=== PATIENT | male | born 1955 | race African-American/Black ===

== ENCOUNTER 2019-09-04 15:59 | Inpatient (IN) | payer MEDICARE, OTHER ==
[~2019-09-04] VITALS: Ht 177.8 cm; Wt 91.6 kg
--- NOTE | 2019-09-04 16:05 | NUR ---
TACTICAL DEBRIEFER OFFICER NOTE: PATIENT IS A 63 YEAR OLD MALE BROUGHT IN TO THE HOSPITAL BY AMBULANCE FROM [facility]. PT IS ADMITTED ON A 5150 HOLD DTS. PT HAS A HISTORY OF SCHIZOPHRENIA WITH ONE PREVIOUS IN PT PSY HOSP. + SI WITH PLAN TO OD ON AMBIEN. PT DENIES PREVIOUS SUICIDE ATTEMPTS.TRIGGERED BY LEGAL PROCEEDINGS RELATED TO PT'S SECTION EIGHT HOUSING. + AUDITORY HALLUCINATIONS, COMMAND TYPE. PT STATES VOICES STATE "TO JUST END IT". PER 5150 HOLD, PT WAS ADMITTED FOR CHEST PAIN AND WHEN MEDICALLY CLEARED PT REPORTED + SI WITH PLAN TO OD. UPON FACE TO FACE ASSESSMENT, PT'S ASSESSMENT VALIDATES THE INFORMATION CONTAINED IN THE 5150 HOLD.PT CURRENTLY HAS VAGUE THOUGHTS OF SUICIDE AND CAN CONTRACT FOR SAFETY. DENIES CURRENT SI WITH A PLAN. PT DENIES HI/VH/TH. PT PRESENTS DEPRESSED, FLAT, RESTRICTED, LABILE AND PARANOID. POOR EYE CONTACT. GOOD LONG AND SHORT TERM MEMORY. PT REPORTS RECENT BOUTS OF INSOMNIA. PT MEDICAL HISTORY SIGNIFICANT FOR SYNCOPE AND CHRONIC BACK AND SHOULDER PAIN. PT ALSO REPORTS CHRONIC ABDOMINAL PAIN FROM A FAILED HERNIA REPAIR. PT IS AMBULATORY WITH A CANE. SPEECH CLEAR AND PRESSURED. PT IS WELL GROOMED. PT IS A FALL RISK D/T A FALL WITHIN THE LAST MONTH DUE TO A SYNCOPAL EPISODE. PT PLACED CLOSE TO THE NURSES STATION WITH q15 MIN CHECKS D/T SUICIDALITY. CALL LIGHT WITHIN REACH AND BED PLACED IN LOWEST LOCKED POSITION WITH SIDE RAILS UP X2. VSS. PT IS CURRENTLY NOT ON PSYCHOTROPIC MEDICATIONS. PT ORIENTED TO THE UNIT AND VALUABLES PLACE IN SAFE. PATIENT GIVEN PATIENT'S RIGHTS HANDBOOK AND GUIDE TO PRESCRIPTIONS.
[2019-09-04] MEDS ORDERED: MAG HYDROX/AL HYDROX/SIMETH 30 ML UDC PO PRN (16:30)
[2019-09-04] MEDS ORDERED: LORAZEPAM 0.5 MG TABLET PO PRN (16:30)
[2019-09-04] MEDS ORDERED: ACETAMINOPHEN 325 MG TABLET PO PRN (16:30)
[2019-09-04] MEDS ORDERED: BLOOD SUGAR DIAGNOSTIC 1 EACH STRIP IN ONE (16:30)
[2019-09-04] MEDS ORDERED: MAGNESIUM HYDROXIDE 30 ML UDC PO PRN (16:30)
[2019-09-04] MEDS ORDERED: TEMAZEPAM 7.5 MG CAPSULE PO PRN (16:30)
[2019-09-04] MEDS ORDERED: ESCI10TA PO (17:06)
[2019-09-04] MEDS ORDERED: IBUP-1955 PO (17:06)
[2019-09-04] MEDS ORDERED: MECL-159 PO (17:06)
[2019-09-04] MEDS ORDERED: HYDR-3972 PO (17:08)
[2019-09-04] MEDS ORDERED: TEMAZEPAM 15 MG CAPSULE PO PRN (18:00)
[2019-09-04 18:08] VITALS: BP 142/97
--- NOTE | 2019-09-04 19:30 | NUR ---
GPS RN OPENING NOTES : PATIENT RESTING IN ROOM . NO S/S OF ANY DISTRESS NOTED. BREATHING EVEN AND UNLABORED. NO S/S OF SOB. PT IS A & O X3, ISOLATIVE, RESERVED, DISHEVELED, GUARDED, EASILY AGITATED, DISORGANIZED, DENIES SI/HI AT THIS TIME. SAFETY MEASURES IN PLACE. BED ALARM ON. BED IN LOW LOCKED POSITION. PT. IS IN LINE OF SIGHT AT ALL TIMES FOR SAFETY. SUICIDAL PRECAUTIONS OBSERVED. WILL CONTINUE TO MONITOR Q15 MINS FOR SAFETY AND BEHAVIOR. CONTINUE TO MONITOR.
[2019-09-04 20:20] VITALS: BP 126/94
[2019-09-05 07:37] LABS: ALBUMIN 3.1 g/dL (3.4-5.0); BILIRUBIN,TOTAL 0.3 mg/dL (0.2-1.0); CALCIUM, SERUM 8.6 mg/dL (8.5-10.1); POTASSIUM 4.1 mmol/L (3.5-5.1); TOTAL PROTEIN, SERUM 7.2 g/dL (6.4-8.2)
[2019-09-05 07:49] LABS: CHOLESTEROL 167 mg/dL (<200); HDL CHOLESTEROL 35 mg/dL (40-60); LDL 108 mg/dL (0-99); TRIGLYCERIDES 127 mg/dL (30-150)
[2019-09-05 08:00] VITALS: BP 140/85
--- NOTE | 2019-09-05 12:45 | NUR ---
INITIAL DISCHARGE PLAN: Pt wishes to return home [address] [place] [address] . SW will help form a safe and proper discharge in collaboration with .
--- NOTE | 2019-09-05 15:34 | NUR ---
GROUP NOTE: SW encouraged pt to participate in group therapy on this present day discussing, "reality-testing." Pt refused to attend saying, "I'm leaving tomorrow, I have to go take care fo business." SW attempted to provide intervention and provide insight into his mental illness and pt refused to acknowledge information given to him and became agitated.
[2019-09-05 16:00] VITALS: BP 153/95
[2019-09-05] MEDS ORDERED: risperiDONE 1 MG TABLET PO ONE (17:00)
[2019-09-05] MEDS ORDERED: SERTRALINE HCL 50 MG TABLET PO ONE (17:00)
[2019-09-05 20:26] VITALS: BP 136/89
--- NOTE | 2019-09-06 06:56 | NUR ---
GPS RN NOTE: PATIENT COMPLAIN ABOUT HIS FOOD BEING MECHANICAL SOFT, PATIENT STATED "THEY TREATED ME LIKE A BABY, I WANT REGULAR, I HAVE NO PROBLEM SWALLOWING, I HAVE NO PROBLEM CHEWING". PATIENT ALSO REQUESTED NOT TO HAVE PORK AND COFFEE ON HIS MEAL. EXPLAINED TO THE PATIENT THE PROCEDURE, PATIENT VERBALIZED UNDERSTANDING AND PATIENT CALM DOWN. WILL CONTINUE TO MONITOR Q15 MISN FOR SAFETY
[2019-09-06 08:00] VITALS: BP 159/87
[2019-09-06] MEDS: SERTRALINE HCL 50 MG TABLET PO SCH (09:00)
[2019-09-06] MEDS: risperiDONE 1 MG TABLET PO SCH ×2 (09:00→17:00)
[2019-09-06 10:52] LABS: BASOPHILS % (AUTO) 0.4 % (0.0-2.0); EOSINOPHILS % (AUTO) 1.5 % (0.0-6.0); HEMATOCRIT 48 % (39-51); HEMOGLOBIN 15.8 g/dL (13.5-17.5); LYMPHOCYTES # (AUTO) 1.5 /CMM (0.8-4.8); LYMPHOCYTES % (AUTO) 33.7 % (20.0-44.0); MEAN CORPUSCULAR HGB CONC 33 g/dl (31.0-36.0); MEAN CORPUSCULAR VOLUME 89 fL (80-96); MONOCYTES # (AUTO) 0.5 /CMM (0.1-1.30); MONOCYTES % (AUTO) 10.8 % (2.0-12.0); NEUTROPHILS # (AUTO) 2.4 /CMM (1.8-8.9); NEUTROPHILS % (AUTO) 53.6 % (43.0-81.0); PLATELET COUNT (AUTO) 308 /CMM (150-450); RED BLOOD CELL COUNT(AUTO) 5.45 MIL/uL (4.5-6.0); WHITE BLOOD COUNT (AUTO) 4.5 K/uL (4.3-11.0)
--- NOTE | 2019-09-06 12:06 | NUR ---
GPS RN NOTE: RECEIVED RESTING IN THE ROOM A/OX3 PT DEMANDING, PARANOID,EASILY AGITATED, ARGUMENTATIVE, REFUSED AM MEDICATIONS STATED"IM FEELING FINE I DONT NEED ANY MEDICATIONS" EXPLAIN RISK AND BENEFITS PT CONTINUE REFUSING.PT DENIES SI/HI AT THIS TIME,DENIES FEELING DEPRESSED.PT COMPLAINING OF FOOD IT WAS ORDERED, OFFERED PT TO CALL THE KITCHEN TO ORDER ANY FOOD HE LIKES WITCH PT REFUSED ALL NEEDS MET AND UNANTICIPATED.WILL CONT TO MONITOR PT PER GPS PROTOCOL
--- NOTE | 2019-09-06 13:50 | NUR ---
INDIVIDUAL MEETING: SW met with pt at beside and attempted to address pts issues with his hospitalization due to pt constantly complaining about various things. Pt was agitated and hyperverbal and would not allow SW to speak. SW attempted to have a reality-based conversation with pt and explain reason for 5150 hold and pt denied ever stating he was having suicidal ideation with a plan to overdose, SW also attempted to encourage pt to be medication compliant and pt stated he did not need medication and will not take it. SW had a hard time redirecting pt as he was in a manic state.
--- NOTE | 2019-09-06 14:08 | NUR ---
GPS RN NOTE: PT REFUSED TO GIVE URINE SPECIMEN EXPLAIN RISK AND BENEFITS PT REFUSED STATED"IM NOT GIVING YOU NOTHING "
--- NOTE | 2019-09-06 14:16 | NUR ---
COLLATERAL CONTACT: RYAN contacted pts psychiatrist Dr. Marie Address: [address], [place] [address] to discuss pts treatment. SW informed him that pt has been refusing medications and has been agitated and constantly complaining about various things. SW explained that all his complaints have been addressed, however, pt has not been satisfied with the result. SW stated that pts has lack of insight and denies reason for 5150 hold. SW also stated that pt is focused on being discharged and states that he will call social security and 911 so he can get out. RYAN informed the MD that she attempted to have a reality-based conversation with pt explaining his treatment and hold process and pt would not allow SW to speak. Psychiatrist states that he had a one hour long conversation with pt last night and he believes that pt is not a danger to himself and should be discharged after pts 72 hour hold expires. Psychiatrist confirmed that pt is having issues with his landlord and is at risk of losing his section 8 voucher and wishes for SW to write him a letter stating he was been hospitalized on a 72 hour hold. RYAN stated that due to HIPPA SW is unable to provide details of pts hospitalization but is able to write a generic letter that states the date of admission and date of discharge. Psychiatric agreed and requested SW call him tomorrow with an update. SW stated that she will be contacting tomorrow with an update.
[2019-09-06 16:00] VITALS: BP 151/98
[2019-09-06 20:00] VITALS: BP 121/80
[2019-09-07 08:00] VITALS: BP 144/88
[2019-09-07] MEDS: risperiDONE 1 MG TABLET PO SCH (08:23)
--- NOTE | 2019-09-07 08:30 | NUR ---
GPS RN NOTE: PARANOIA PT IS HYPERVERBAL, DEMANDING, ATTENTION SEEKING, PARANOID. PT STATES "THE STAFF ARE TRYING TO KILL ME BECAUSE I AM A BLACK CONFUCIANISM. WHEN I WAS ADMITTED THEY SERVED ME A MEAL WITH HAM IN IT. WHEN I TOLD THE NURSE I NEED A KOSHER MEAL THEY PROVIDED IT TO ME, BUT I DIDN'T LIKE IT AND COMPLAINED. THEY HAD A DIETITIAN SEE ME BUT THEY DIDN'T CARE EITHER AND I COULD ALSO TELL THEY WERE TREATING ME DIFFERENTLY BECAUSE IM A BLACK CONFUCIANISM. THEN THE NURSES AND PSYCHIATRIST TRIED TO GIVE ME THESE 2 PILLS TOGETHER, WHEN MY OUTSIDE PSYCHIATRIST SAYS TO TAKE THEM SEPARATELY. I TOOK THEM TOGETHER AND IT ALMOST KILLED ME. I WAS LAYING ON THE FLOOR DYING HOLDING MY CHEST AND NO ONE CARED BECAUSE THEY WERE TRYING TO KILL ME. ITS NOT RIGHT THAT PEOPLE ARE TRYING TO KILL ME BECAUSE I AM A BLACK CONFUCIANISM. I AM ONLY HERE BECAUSE I WAS A [employer] FOR [facility], THEN ADMITTED THAT I HAD A PLAN TO KILL MYSELF BY OVERDOSING. BUT I DID NOT INTEND TO DO IT, ONLY THOUGHT ABOUT IT. BUT NOW IM FINE AND NOT SUICIDAL, BUT I AM LOCKED UP HERE WITH PEOPLE TRYING TO KILL ME."
[2019-09-07] MEDS: SERTRALINE HCL 50 MG TABLET PO SCH (09:00)
[2019-09-07] MEDS ORDERED: diphenhydrAMINE HCL 50 MG/ML VIAL IM STA ×2 (09:40→10:01)
[2019-09-07] MEDS ORDERED: HALOPERIDOL LACTATE INJ 5 MG/ML VIAL IM STA ×2 (09:40→10:01)
[2019-09-07] MEDS ORDERED: LORAZEPAM INJ 2 MG/ML VIAL IM STA ×2 (09:40→10:00)
--- NOTE | 2019-09-07 09:53 | NUR ---
Pt. complaining that his heart is pounding after taking the Risperdal po. V/S taken 149/[address] Lovett gave an order to d/c Risperdal and ordered to give Seroquel 100 mg in AM and Seroquel 100 at night and to given ativan 1 mg po now. Pt. was calling [address] Lovett made aware and ordered pt. may use phone with supervision. Addendum: 09/07/19 at 1004 by ARIANNA ABAD RN Pt. offered to take Ativan po and pt. refused. Explained on the importance and pt. still refusing.
--- NOTE | 2019-09-07 10:19 | NUR ---
RN-CO: PATIENT IS PARANOID SAYING " THEY ARE KILLING ME HERE." CALLED 911 AND HIS ATTY. LOUD AND ANXIOUS. HE IS FOCUS ON HIS DISCHARGE. CALLED DR RICHARDSON, TO OBTAIN AN ORDER, HE ORDERED ATIVAN 2 MG IM, HALDOL 5 MG IM, BENADRY 25 MG IM STAT. HOWEVER, AFTER 10 MIN. WE NOTICED THAT HE BECAME CALMER, HE DID NOT EXHIBIT ANY IMPENDING DANGER TO OTHERS HOWEVER HE TALKS LOUD. WE DID NOT ADMINISTER THE ORDER , SINCE THERE IS NO EVIDENCE OF THREATENING, HURTING ANYBODY.
--- NOTE | 2019-09-07 11:00 | NUR ---
Madeleine Wlider NP came and examined the pt. in his room.
[2019-09-07] MEDS: MECLIZINE HCL 12.5 MG TABLET PO SCH ×2 (14:11→21:19)
--- NOTE | 2019-09-07 15:32 | NUR ---
INDIVIDUAL MEETING: SW attempted to have an intervention and attempted to have a reality-based conversation with pt. Pt demonstrates lack of insight and continues to challenge SW's attempts by questioning SW's knowledge. SW attempted to discuss pts behavior of agitation and paranoia and belief that the hospital and MD are trying to kill him because of his hinduism beliefs and his thoughts that the medications MD has prescribed are going to kill him. SW also attempted to discuss pts frequent phone calls to the police saying he was being held hostage and that the hospital was trying to kill him. Pt denied such behavior and said "that is not true you're making it up how do you know that happened." Pt is argumentative, paranoid, and difficult to redirect. SW set boundaries with pt and excused herself due to pts agitation, paranoia, and lack of insight.
[2019-09-07 16:00] VITALS: BP 114/79
[2019-09-07 20:40] VITALS: BP 148/95
[2019-09-07] MEDS ORDERED: QUETIAPINE FUMARATE 100 MG TABLET PO SCH (22:00)
[2019-09-08] MEDS: MECLIZINE HCL 12.5 MG TABLET PO SCH ×3 (05:10→12:29)
--- NOTE | 2019-09-08 06:00 | NUR ---
GPS RN NOTES: MEDICATION REFUSAL PT. REFUSED MECLIZINE 12.5 MG PO THIS MORNING. PT STATED "I WANT TO SEE A CASH APPLICATIONS REPRESENTATIVE BEFORE I TAKE ANY MORE MEDICATIONS." EDUCATED PT. REGARDING IMPORTANCE OF MEDICATION COMPLIANCE. PT. STILL REFUSED X 3. WILL CONTINUE TO MONITOR FOR SAFETY
[2019-09-08] MEDS: SERTRALINE HCL 50 MG TABLET PO SCH (08:33)
[2019-09-08] MEDS ORDERED: QUETIAPINE FUMARATE 100 MG TABLET PO SCH (09:00)
--- NOTE | 2019-09-08 09:00 | NUR ---
RN NOTE- RX REFUSAL/ PT REFUSING MORNING RX. ALERT, AMBULATORY PT STATES MEDICATIONS ARE "CAUSING ME TO OVERDOSE" STATES "DOCTORS ARE LYING". OTHERWISE CALM, DIRECTABLE AND INTERACTIVE. PT DENIES SI HI VH
[2019-09-08 09:21] VITALS: BP 154/99
--- NOTE | 2019-09-08 15:09 | NUR ---
DISCHARGE NOTE: Pt will be discharged at 5:00pm via [facility] home [address] [place] [address] . No family to notify. Pt had a Probable Cause on this present day and 5250 hold was not upheld under danger to self. Pts mood is paranoid with flat affect. Pt denied visual/auditory hallucinations and denied suicidal/homicidal ideation. Pt will follow up with his outside Psychiatrist: Dr. Marie Address: [address], [place] [address] Marie and left a voicemail informing him pt will be discharged on this present day and requested a follow-up appointment. Pt was given a referral to [facility]: Dr. Jamie Turner Address: [address] [facility] [address], [place] [address] . The multidisciplinary exit care form was done, printed, signed, and given to the patient.
--- NOTE | 2019-09-08 15:10 | NUR ---
RN-CO: Patient attended the [facility] today, and hold was discontinued by [place] [employer] [employer]. Paged Dr Lovett 2x to made him aware. Per patient he doesn't need any prescriptions from the medical doctor as well as from Dr Lovett. He denies suicidal and homicidal ideation. And strongly denies auditory and visual hallucination.
--- NOTE | 2019-09-08 15:54 | NUR ---
RN-CO: Paged Dr Lovett again. Patient stated " I don't need medical prescription and any prescription from the psychiatrist, am ok." Zabrina, laboratory veterinarian made aware. Addendum: 09/08/19 at 1559 by MIKAYLA LINDSEY RN RN-CO: ALL BELONGINGS AND VALUABLES WAS GIVEN BACK TO THE PATIENT. INSTRUCTED TO SEE PSYCHIATRIST WITHIN A WEEK AND NEEDED AND MAKE A FOLLOW UP APPOINTMENT TO [facility] [employer]. CALL 911 FOR EMERGENCY. READ THE HEALTH TEACHINGS PROVIDED. Addendum: 09/08/19 at 1603 by MIKAYLA LINDSEY RN RN-CO: [facility] WAS PROVIDED, WE WILL ESCORT THE PATIENT SOON TAXI IS HERE. ARMBAND WAS REMOVED.
--- NOTE | 2019-09-08 16:03 | NUR ---
RN-CO:Patient is alert and oriented x 4, self care, able to make needs known and has a steady gait.
--- NOTE | 2019-09-08 16:05 | NUR ---
RN-CO: PATIENT WAS ESCORTED TO THE LOBBY WITH ALL HIS BELONGINGS AND DISCHARGE PAPERS.
[2019-09-08 16:16] VITALS: BP 162/91
== END 2019-09-08 16:05 | disposition home or self-care (01) | DRG 885 ==
LOC: GPS 15:59
PROVIDERS: ADMIT Psychiatry & Neurology Psychiatry; ATTEND Registered Nurse
DX: F25.9 Schizoaffective disorder, unspecified (principal); E66.9 Obesity, unspecified; I10 Essential (primary) hypertension; Z73.6 Limitation of activities due to disability; Z59.0 Homelessness; R42 Dizziness and giddiness; Z68.29 Body mass index [BMI] 29.0-29.9, adult
CPT/HCPCS: 36415; 80053-TC; 80061-TC; 82962-TC; 85025-TC; 87081-TC; 93307-TC; 97116-TC; 97530-TC; J1200; J1630; J2060; J8597